=== PATIENT | female | born 1990 | race Caucasian/White ===

== ENCOUNTER 2017-01-28 08:11 | Emergency (ER) | payer OTHER ==
--- NOTE | 2017-01-28 08:57 | ER Document Report ---
ED General - General Mode of Arrival: Ambulatory Information source: Patient TRAVEL OUTSIDE OF THE [place] 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 Patient states that she immediately felt a burning pain in her lower back and pins & needles down her right leg into her toes. Patient states that she is no longer tingling in her toes, but is still experiencing pain into her leg. Patient states the pins and needle sensation travels straight down her leg as opposed to a wrapping pattern. Patient states that her last menstrual cycle was in November 2016. Patient reports having her Mirena removed in September, and her cycles have been irregular since. (MONTSE TARIQ) - Related Data Allergies/Adverse Reactions: No Known Allergies Allergy (Verified 01/28/17 08:20) Past Medical History - General Information source: Patient Last Menstrual Period: 11/2016 - Had Mirena removed in September, irregular since then - Social History Smoking Status: Never Smoker Occupation: Assisted Family History: Reviewed & Not Pertinent Patient has suicidal ideation: No Patient has homicidal ideation: No Past Surgical History: Reports: Hx Tonsillectomy Review of Systems - Review of Systems Constitutional: No symptoms reported EENT: No symptoms reported Cardiovascular: No symptoms reported Respiratory: No symptoms reported Gastrointestinal: No symptoms reported Genitourinary: No symptoms reported Female Genitourinary: No symptoms reported Musculoskeletal: See HPI - right low back, radiates down right leg, Back pain Skin: No symptoms reported Hematologic/Lymphatic: No symptoms reported Neurological/Psychological: No symptoms reported -: Yes All other systems reviewed and negative Physical Exam - Vital signs Interpretation: Normal - General General appearance: Appears well, Alert - HEENT Head: Normocephalic, Atraumatic Eyes: Normal Pupils: PERRL - Respiratory Respiratory status: No respiratory distress Chest status: Nontender - Cardiovascular Rhythm: Regular - Abdominal Inspection: Normal Distension: No distension Tenderness: Nontender - Back Back: Tender - tenderness to palpation over right lumbar muscles, straight leg raise does not cause any increased pain - Extremities General upper extremity: Normal inspection, Nontender. No: Edema General lower extremity: Normal inspection, Nontender. No: Edema - Neurological Neuro grossly intact: Yes Cognition: Normal Orientation: AAOx4 Lucía Coma Scale Eye Opening: Spontaneous Lucía Coma Scale Verbal: Oriented Raven Coma Scale Motor: Obeys Commands Raven Coma Scale Total: 15 Speech: Normal - Psychological Associated symptoms: Normal affect, Normal mood - Skin Skin Temperature: Warm Skin Moisture: Dry Skin Color: Normal Discharge - Discharge Clinical Impression: Lumbar back sprain Qualifiers: Encounter type: initial encounter Qualified Code(s): S33.5XXA - Sprain of ligaments of lumbar spine, initial encounter Condition: Stable Disposition: HOME, SELF-CARE Additional Instructions: Low Back Pain: Three out of every four people will have an episode of disabling back pain during their lifetime. Most commonly the pain is due to straining of the muscles and ligaments in the low back. Usual treatment includes: (1) Rest on a firm surface. Avoid lying on your stomach. (2) Ice pack the painful area. After a few days, gentle heat may be used intermittently to relax the area, or ice packs can be continued. (3) Medication may be needed -- muscle relaxers and antiinflammatory medicines are commonly used. (4) As the back improves, exercises are prescribed to strengthen the back and abdominal muscles. Your doctor will advise you on the proper care for your back at each stage in your recovery. You may be better in a few days -- or healing may take several weeks. If new symptoms of a "herniated disc" (radiation of pain, numbness, or tingling down the back of the leg or weakness in the leg) occur, you should be re-examined. Further testing may be necessary. TAKE THE MEDICATION PRESCRIBED. TAKE MOTRIN 600mg EVERY EIGHT HOURS. REST. FOLLOW UP WITH A LOCAL MEDICAL DOCTOR IF NOT IMPROVING. RETURN TO THE EMERGENCY ROOM IF ANY NEW OR WORSENING SYMPTOMS. Prescriptions: Cyclobenzaprine HCl [Flexeril 5 mg Tablet] 5 mg PO TID PRN #15 tablet PRN Reason: Oxycodone HCl/Acetaminophen [Percocet 5-325 mg Tablet] 1 tab PO ASDIR PRN #15 tablet PRN Reason: Forms: Return to Work Scribe Attestation: 01/28/17 09:35 I personally performed the services described in the documentation, reviewed and edited the documentation which was dictated to the scribe in my presence, and it accurately records my words and actions. (DASH MENDEZ) Scribe Documentation - Scribe Written by Angela:: Angela Morgan, 01/28/2017 0849 acting as scribe for :: Renaldo
[2017-01-28 09:25] LABS: APPEARANCE,URINE CLEAR; BILIRUBIN,URINE NEGATIVE (NEGATIVE); GLUCOSE, URINE NEGATIVE (NEGATIVE); KETONES,URINE NEGATIVE (NEGATIVE); LEUKOCYTE ESTERASE,URINE NEGATIVE (NEGATIVE); NITRITE,URINE NEGATIVE (NEGATIVE); PROTEIN,URINE NEGATIVE (NEGATIVE); URINE SPECIFIC GRAVITY 1.004; UROBILINOGEN,URINE NEGATIVE mg/dL (<2.0)
[2017-01-28 09:45] VITALS: BP 119/53
== END 2017-01-28 09:44 | disposition home or self-care (01) ==
LOC: ER 08:11
DX: S33.5XXA Sprain of ligaments of lumbar spine, initial encounter (principal); M54.5 Low back pain; M54.9 Dorsalgia, unspecified; X58.XXXA Exposure to other specified factors, initial encounter
CPT/HCPCS: 81001; 81025; 99283

== ENCOUNTER 2017-04-08 00:17 | Emergency (ER) | payer OTHER ==
[2017-04-08 00:33] VITALS: BP 97/60
--- NOTE | 2017-04-08 01:50 | ER Document Report ---
ED General - General Chief Complaint: Other Stated Complaint: SHORTNESS OF BREATH,VOMITING Time Seen by Provider: 04/08/17 01:33 Mode of Arrival: Ambulatory TRAVEL OUTSIDE OF THE [place] IN LAST 30 DAYS: No - HPI Notes: 31-year-old female presents with right-sided chest pain that she awoke with shortly prior to arrival. She started back on her Lexapro 10 mg today which made her sleepy and when she woke up she had right-sided chest pain that radiated to her neck worse with movement and deep inspiration. It was sharp in nature and associated with vomiting. Symptoms have improved significantly now at this point. She denies as well is using no hormone replacement. No prior history of BTE. No excessive sedimentation or known hypercoagulable state. She is also being treated for UTI where she has had dysuria and started in the last day both Macrobid and Pyridium. No new cough or cold symptoms, fever. - Related Data Allergies/Adverse Reactions: No Known Allergies Allergy (Verified 04/08/17 00:27) Past Medical History - Social History Smoking Status: Never Smoker Family History: Reviewed & Not Pertinent Renal/ Medical History: Denies: Hx Peritoneal Dialysis Past Surgical History: Reports: Hx Tonsillectomy Review of Systems - Review of Systems -: Yes All other systems reviewed and negative Physical Exam - Vital signs Vitals: Temp Pulse Resp BP Pulse Ox 98.5 F 79 20 97/60 L 96 04/08/17 00:27 04/08/17 00:27 04/08/17 00:27 04/08/17 00:27 04/08/17 00:27 Interpretation: Hypotensive - Notes Notes: Physical Exam: GENERAL: VS as per nursing doc. Well-appearing, well-nourished and in no acute distress. HEAD: Atraumatic, normocephalic. EYES: Pupils equal round and reactive to light, extraocular movements intact, sclera anicteric, no conjunctival injection or discharge. ENT: Nares patent, oropharynx clear without exudates. Moist mucous membranes. NECK: Normal range of motion, supple without lymphadenopathy. No JVD. No Carotid Bruits. LUNGS: Breath sounds clear to auscultation bilaterally and equal. No wheezes rales or rhonchi. She does have completely reproducible pain in her right anterior chest costochondral region. HEART: Normal S1S2. Regular rate and rhythm without murmurs. Equal peripheral pulses. ABDOMEN: Soft, mild generalized abdominal tenderness. Patient reports this is normal for her and of unknown cause. She denies pain unless you palpate this area. EXTREMITIES: Normal range of motion. No calf tenderness. Negative Homans. No edema. NEUROLOGICAL: Normal speech. Normal sensory and motor exams. No gross cerebellar abnormalities. PSYCH: Normal mood, normal affect. No evidence of suicidal ideation SKIN: Warm, dry, no cyanosis, no splinter hemorrhages. Cap refill < 2 sec. Course - Re-evaluation Re-evalutation: 04/08/17 01:49 By PERC rules, patient can be ruled out for pulmonary embolus. Her pain is completely reproducible. She will not take the medications altogether. Unclear if this is etiology or not, differential discussed with her. EKG done and shows no evidence of pericarditis or cardiac event. - Vital Signs Vital signs: Temp Pulse Resp BP Pulse Ox 98.5 F 79 20 97/60 L 96 04/08/17 00:27 04/08/17 00:27 04/08/17 00:27 04/08/17 00:27 04/08/17 00:27 - EKG Interpretation by Me Rhythm: NSR - Rate 83, no evidence of ischemia, normal intervals. Interpretation normal. Discharge - Discharge Clinical Impression: Chest wall pain Condition: Good Disposition: HOME, SELF-CARE Instructions: Anti-Inflammatory Medication ([facility]), Chest Wall Pain ([facility]) Additional Instructions: I would suggest not taking the medications near the same time until your symptoms have completely resolved. Return for worsening or concern. Contact your physician for follow-up.
--- NOTE | 2017-04-08 10:24 | EKG REPORT ---
SEVERITY:- NORMAL ECG - SINUS RHYTHM : Confirmed by: Jaziel Sandoval 08-Apr-2017 10:23:42
== END 2017-04-08 02:13 | disposition home or self-care (01) ==
LOC: ER 00:17
DX: R07.89 Other chest pain (principal); N39.0 Urinary tract infection, site not specified; R11.10 Vomiting, unspecified; R10.817 Generalized abdominal tenderness
CPT/HCPCS: 93005; 93010; 99284